=== PATIENT | male | born 1940 | race Caucasian/White ===

== ENCOUNTER → 2017-01-09 | Outpatient (CLI) | payer MEDICARE, BC ==
[~2017-01-09] MED LIST: ALLERGY INJ; ALLOPURINOL300 MG PO; APRESOLINE PO; ASPIRIN PO; ASPIRIN81 M2 PO; ENALAPRIL MALEA10 MG PO; GABAPENTIN300 M2 PO; GLUCOPHAGE XR500 MG PO; HUMULIN R100 U/ML SUBQ; LASIX PO; LIPITOR PO; METFORMIN HCL500 M1 PO; METOPROLOL TART25 MG PO; NOVOLIN N100 UNIT/1 SUBQ; NOVOLOG100 U/ML SUBQ; TOPROL XL PO; TYLOX 5/500 CAP1 CAP PO; VASOTEC PO; ZOCOR PO
== END | disposition home or self-care (01) ==
LOC: CLAB 09:00
DX: E87.5 Hyperkalemia (principal)
CPT/HCPCS: 36415; 84132

== ENCOUNTER 2017-02-21 15:54 | Emergency (ER) | payer MEDICARE, BC ==
[~2017-02-21] VITALS: Ht 176.5 cm; Wt 108.0 kg
--- NOTE | ~2017-02-21 | CR151 ---
[facility] A Service of [facility] & [facility] RADIOLOGY TEXT RESULTS PATIENT: RAKESH FIGUEROA LOCATION: [facility] : 40 UNIT #: [id number] AGE: [address]: Dmitri Ugalde MD SEX: M ORDER DR: [id number] [facility] [address] [place], [place] [address] [id number] E MR#: [id number] Acc #: [id number] NAME: RAKESH FIGUEROA : 1940 SEX: M STUDY DATE/TIME: 02/21/2017 17:50 UNIT: [facility] ROOM: STUDY DESCRIPTION: CR Hip Min 2 Views Rt Attending Physician: Dmitri Ugalde M.D. Ordering Physician: Dmitri Ugalde M.D. Primary Care Physician: Valente Zavala M.D. MEDICAL IMAGING REPORT This report is preliminary unless electronic signature is present EXAM Right hip 02/21/2017. INDICATIONS Pain in the right hip for a month; no known injury. TECHNIQUE 2 views of the right hip. COMPARISON No comparisons. FINDINGS Mild degenerative change of the right hip. No acute fracture. Prior pelvic surgery, probably reflecting prostatic seed placement. IMPRESSION Degenerative change of the right hip, but no acute fracture. Dictated by... Brenton Marcelino M.D. THIS IS AN ELECTRONICALLY VERIFIED REPORT Brenton Marcelino M.D. at 02/22/2017 2:24 PM Jesica TD: 02/22/2017 12:34 JOB #: [id number] MEDICAL IMAGING REPORT Page 1 of 1 COPY
== END 2017-02-21 18:50 | disposition home or self-care (01) ==
LOC: CED 15:54
DX: M25.551 Pain in right hip (principal); E11.9 Type 2 diabetes mellitus without complications; I10 Essential (primary) hypertension; E78.5 Hyperlipidemia, unspecified
CPT/HCPCS: 73502; 96372; 99284; J1885